=== PATIENT | female | born 1980 | race African-American/Black ===

== ENCOUNTER 2016-09-04 17:00 | Outpatient (CLI) | payer OTHER ==
[~2016-09-04] VITALS: Ht 160 cm; Wt 97.1 kg
[2016-09-04 17:15] VITALS: BP 141/68
[2016-09-04 17:16] VITALS: BP 141/68
[2016-09-04] MEDS ORDERED: LO-DOSE ASPIRIN81 M2 PO (17:22)
[2016-09-04] MEDS ORDERED: VITAFOL-OB+DHA1 EACH PO (17:23)
[2016-09-04 18:34] VITALS: BP 111/57
[2016-09-04] MEDS ORDERED: MAKENA250 MG/11 IM ×2 (18:57→19:00)
[2016-09-04 19:58] LABS: ADD MIUA? NO; BILIRUBIN NEGATIVE; BLOOD NEGATIVE; COLOR YELLOW ((YELLOW)); GLUCOSE (STRIP) NEGATIVE; KETONES NEGATIVE; LEUKOCYTES NEGATIVE; NITRITE NEGATIVE; PROTEIN (STRIP) NEGATIVE; SPECIFIC GRAVITY 1.014 (1.000-1.030); UCUL ADDED? NO; UROBILINOGEN 0.2 MG/DL (0.2-1.0)
[2016-09-04 20:25] LABS: AMPHETAMINES QUANT VALUE 0 NG/ML; BARBITUATES QUANT VALUE 0 NG/ML; BENZODIAZEPINES QUANT VALUE 0 NG/ML; BENZODIAZEPINES, URINE SCREEN Negative (200 ng/mL); MARIJUANA QUANT VALUE 0 NG/ML; OPIATES QUANTITATIVE VALUE 0 NG/ML; PHENCYCLIDINE QUANT VALUE 0 NG/ML
[2016-09-04 20:48] VITALS: BP 128/66
[2016-09-04 20:51] LABS: DRSB INTERNAL CONTROL PASS; PROBE CHECK PASS; SPECIMEN PROCESSING CONTROL PASS
[2016-09-04 22:51] LABS: CANDIDA DNA PROBE NEGATIVE; GARDNERELLA DNA PROBE NEGATIVE; INTERNAL CONTROL VALID? YES
[2016-09-05 12:16] LABS: CHLAMYDIA TRACHOMATIS NEGATIVE; NEISSERIA GONORRHOEAE NEGATIVE
== END 2016-09-04 21:50 | disposition home or self-care (01) ==
LOC: LDRP-OP 17:00 → 2WEST 17:01
PROVIDERS: Advanced Practice Midwife
DX: O26.893 Other specified pregnancy related conditions, third trimester (principal); Z3A.32 32 weeks gestation of pregnancy; R10.84 Generalized abdominal pain; O34.219 Maternal care for unspecified type scar from previous cesarean delivery
CPT/HCPCS: 59025; 80306 90; 81003; 82731; 87081; 87086; 87480; 87491; 87510; 87591; 87653; 87660; G0378

== ENCOUNTER 2016-10-17 20:44 | Inpatient (IN) | payer OTHER ==
[~2016-10-17] VITALS: Ht 160 cm; Wt 94.5 kg
[~2016-10-17 20:44] MED LIST: LO-DOSE ASPIRIN81 M2 PO; MAKENA250 MG/11 IM; VITAFOL-OB+DHA1 EACH PO
[2016-10-17 21:27] VITALS: BP 132/78
[2016-10-17 21:46] LABS: EOSINOPHIL (%) 1.5 % (0-5); EOSINOPHIL COUNT 0.1 K/uL (0-0.3); HEMATOCRIT 33.2 % (36.0-46.0); IMMATURE GRANULOCYTE (%) 0.9 % (0.0-0.7); IMMATURE GRANULOCYTE COUNT 0.1 K/uL; INSTRUMENT ABS NEUTROPHIL CT 4.1 K/uL; MCH 26.9 PG (29.0-34.0); MCHC 31.9 G/DL (30.0-36.0); MCV 84.3 FL (83-99); MONOCYTE COUNT 0.3 K/uL (0-0.8); NEUTROPHIL (%) 62.6 % (45-76); NEUTROPHIL COUNT 4.1 K/uL (1.8-6.4); RBC DIS.WIDTH-CV 15.4 % (11.8-14.6); RBC DIS.WIDTH-SD 47.1 % (39-53); RED BLOOD COUNT 3.94 M/uL (3.80-5.20); WHITE BLOOD COUNT 6.6 K/uL (4.1-10.2)
[2016-10-17 22:33] LABS: PLAT.SUFFICIENCY ADEQUATE; PLATELET CLUMPS PRESENT - PLATELET COUNT APPEARS ADQ.
[2016-10-17 22:34] LABS: PLATELET COUNT UNABLE TO REPORT K/uL (156-360)
[2016-10-18] VITALS (18 sets, daily range): BP systolic 99–125; BP diastolic 50–68
[2016-10-18 06:43] LABS: EOSINOPHIL (%) 0 % (0-5); HEMATOCRIT 27.8 % (36.0-46.0); IMMATURE GRANULOCYTE (%) 0.5 % (0.0-0.7); IMMATURE GRANULOCYTE COUNT 0.1 K/uL; INSTRUMENT ABS NEUTROPHIL CT 8.7 K/uL; LYMPHOCYTE COUNT 1.3 K/uL (1.0-2.8); MCH 27.5 PG (29.0-34.0); MCHC 32.4 G/DL (30.0-36.0); MEAN PLAT.VOLUME 11.5 uM^3 (9.5-12.4); MONOCYTE (%) 4.5 % (3-12); MONOCYTE COUNT 0.5 K/uL (0-0.8); NEUTROPHIL (%) 82.2 % (45-76); NEUTROPHIL COUNT 8.7 K/uL (1.8-6.4); RBC DIS.WIDTH-CV 15.5 % (11.8-14.6); RBC DIS.WIDTH-SD 47.6 % (39-53); RED BLOOD COUNT 3.27 M/uL (3.80-5.20)
[2016-10-18 06:46] LABS: PLATELET COUNT 196 K/uL (156-360); WHITE BLOOD COUNT 10.6 K/uL (4.1-10.2)
[2016-10-18 13:07] LABS: HEMATOCRIT 24.2 % (36.0-46.0); MCH 27.4 PG (29.0-34.0); MCHC 32.6 G/DL (30.0-36.0); MEAN PLAT.VOLUME 11.4 uM^3 (9.5-12.4); PLATELET COUNT 178 K/uL (156-360); RBC DIS.WIDTH-CV 15.3 % (11.8-14.6); RBC DIS.WIDTH-SD 46.7 % (39-53); RED BLOOD COUNT 2.88 M/uL (3.80-5.20); WHITE BLOOD COUNT 10.1 K/uL (4.1-10.2)
[2016-10-19 03:15] VITALS: BP 110/53
[2016-10-19 07:27] VITALS: BP 93/52
[2016-10-19 11:52] VITALS: BP 114/76
[2016-10-19 14:20] LABS: HEMATOCRIT 21.8 % (36.0-46.0); MCH 27.6 PG (29.0-34.0); MCHC 32.6 G/DL (30.0-36.0); MCV 84.8 FL (83-99); MEAN PLAT.VOLUME 11.3 uM^3 (9.5-12.4); PLATELET COUNT 164 K/uL (156-360); RBC DIS.WIDTH-CV 15.8 % (11.8-14.6); RED BLOOD COUNT 2.57 M/uL (3.80-5.20); WHITE BLOOD COUNT 8.6 K/uL (4.1-10.2)
[2016-10-19 15:26] VITALS: BP 99/57
[2016-10-19 19:39] VITALS: BP 117/62
[2016-10-19 23:38] VITALS: BP 119/63
[2016-10-20 02:55] VITALS: BP 116/59
[2016-10-20 05:45] VITALS: BP 104/51
[2016-10-20 07:24] VITALS: BP 97/48
[2016-10-20 07:52] LABS: EOSINOPHIL (%) 1.2 % (0-5); EOSINOPHIL COUNT 0.1 K/uL (0-0.3); HEMATOCRIT 22.5 % (36.0-46.0); IMMATURE GRANULOCYTE (%) 1.5 % (0.0-0.7); IMMATURE GRANULOCYTE COUNT 0.1 K/uL; LYMPHOCYTE COUNT 1.6 K/uL (1.0-2.8); MCH 27.7 PG (29.0-34.0); MCHC 32.4 G/DL (30.0-36.0); MCV 85.2 FL (83-99); MEAN PLAT.VOLUME 10.7 uM^3 (9.5-12.4); MONOCYTE (%) 3.2 % (3-12); MONOCYTE COUNT 0.3 K/uL (0-0.8); NEUTROPHIL (%) 74.4 % (45-76); PLATELET COUNT 168 K/uL (156-360); RBC DIS.WIDTH-CV 15.8 % (11.8-14.6); RBC DIS.WIDTH-SD 48.3 % (39-53); RED BLOOD COUNT 2.64 M/uL (3.80-5.20); WHITE BLOOD COUNT 8.1 K/uL (4.1-10.2)
[2016-10-20] MEDS ORDERED: IBUPROFEN800 MG PO (08:56)
[2016-10-20] MEDS ORDERED: FERROUS SULFAT325 MG PO (08:56)
[2016-10-20] MEDS ORDERED: ENDOCET 5-3251 EACH PO (08:56)
== END 2016-10-20 11:15 | disposition home or self-care (01) | DRG 765 ==
LOC: LDRP-OP 20:44 → 2WEST 20:45 → LDRP-OP 11-27 09:48
PROVIDERS: Advanced Practice Midwife; Obstetrics & Gynecology
PROC: 10D00Z1 Extraction of Products of Conception, Low, Open Approach (ICD-10-PCS; principal; 2016-10-17)
DX: O75.82 Onset (spontaneous) of labor after 37 completed weeks of gestation but before 39 completed weeks gestation, with delivery by (planned) cesarean section (principal); Z3A.38 38 weeks gestation of pregnancy; Z37.0 Single live birth; O10.92 Unspecified pre-existing hypertension complicating childbirth; O90.81 Anemia of the puerperium; D62 Acute posthemorrhagic anemia; O99.214 Obesity complicating childbirth; Z68.30 Body mass index [BMI] 30.0-30.9, adult; O34.211 Maternal care for low transverse scar from previous cesarean delivery
CPT/HCPCS: 85025; 85027; 86900; 86901; J0690; J2270; J2274; J2405; J2765; J7120

== ENCOUNTER 2016-10-22 09:47 | Inpatient (IN) | payer OTHER ==
[~2016-10-22] VITALS: Ht 160 cm; Wt 95.5 kg
[~2016-10-22 09:47] MED LIST changes: +ENDOCET 5-3251 EACH PO; +FERROUS SULFAT325 MG PO; +IBUPROFEN800 MG PO
[2016-10-22 10:23] LABS: EOSINOPHIL (%) 1.9 % (0-5); EOSINOPHIL COUNT 0.2 K/uL (0-0.3); HEMATOCRIT 23.1 % (36.0-46.0); IMMATURE GRANULOCYTE (%) 2.2 % (0.0-0.7); IMMATURE GRANULOCYTE COUNT 0.2 K/uL; INSTRUMENT ABS NEUTROPHIL CT 5.6 K/uL; LYMPHOCYTE COUNT 1.5 K/uL (1.0-2.8); MCH 27.2 PG (29.0-34.0); MCV 84.9 FL (83-99); MONOCYTE (%) 5.1 % (3-12); MONOCYTE COUNT 0.4 K/uL (0-0.8); NEUTROPHIL (%) 71.4 % (45-76); NEUTROPHIL COUNT 5.6 K/uL (1.8-6.4); NRBC (%) 0.5 /100 WBC (0-0); RBC DIS.WIDTH-CV 15.7 % (11.8-14.6); RED BLOOD COUNT 2.72 M/uL (3.80-5.20); WHITE BLOOD COUNT 7.9 K/uL (4.1-10.2)
[2016-10-22 10:24] LABS: PLATELET COUNT 250 K/uL (156-360)
[2016-10-22 10:33] LABS: D-DIMER ELISA > 4.00 mg/L FEU (< 0.57)
[2016-10-22 10:48] LABS: CHLORIDE 109 mEq/L (99-109); SODIUM 142 mEq/L (136-147)
[2016-10-22 10:50] LABS: GLUCOSE 89 mg/dL (70-99)
[2016-10-22 10:51] LABS: ANION GAP 14 MEQ/L (2-14)
[2016-10-22 10:54] LABS: GFR ESTIMATE (CALCULATED) > 59 mL/min/; UREA NITROGEN (BUN) 13 mg/dL (9-23)
[2016-10-22 16:30] VITALS: BP 136/67
[2016-10-22 19:31] VITALS: BP 115/56
[2016-10-22 21:58] LABS: INFLUENZA A VIRAL ANTIGEN NEGATIVE
[2016-10-22 21:59] LABS: INFLUENZA B VIRAL ANTIGEN NEGATIVE
[2016-10-22 23:26] VITALS: BP 144/78
[2016-10-23 04:07] VITALS: BP 131/71
[2016-10-23 06:53] LABS: EOSINOPHIL (%) 1.3 % (0-5); EOSINOPHIL COUNT 0.1 K/uL (0-0.3); HEMATOCRIT 23.3 % (36.0-46.0); IMMATURE GRANULOCYTE (%) 2.9 % (0.0-0.7); IMMATURE GRANULOCYTE COUNT 0.2 K/uL; INSTRUMENT ABS NEUTROPHIL CT 5.3 K/uL; LYMPHOCYTE COUNT 1.5 K/uL (1.0-2.8); MCH 27.3 PG (29.0-34.0); MCHC 31.3 G/DL (30.0-36.0); MCV 87.3 FL (83-99); MEAN PLAT.VOLUME 10.6 uM^3 (9.5-12.4); MONOCYTE (%) 3.9 % (3-12); MONOCYTE COUNT 0.3 K/uL (0-0.8); NEUTROPHIL COUNT 5.3 K/uL (1.8-6.4); NRBC (%) 0.9 /100 WBC (0-0); PLATELET COUNT 266 K/uL (156-360); RBC DIS.WIDTH-SD 50.4 % (39-53); RED BLOOD COUNT 2.67 M/uL (3.80-5.20); WHITE BLOOD COUNT 7.5 K/uL (4.1-10.2)
[2016-10-23 07:10] VITALS: BP 132/67
[2016-10-23 07:15] LABS: ANION GAP 10 MEQ/L (2-14); CHLORIDE 107 MEQ/L (99-109); GFR ESTIMATE (CALCULATED) > 59 mL/min/; GLUCOSE 96 mg/dL (70-99); IRON 33 MCG/DL (35-150); POTASSIUM 3.8 MEQ/L (3.7-5.4); SAMPLE HEMOLYSIS CHECK 0; SAMPLE ICTERIC CHECK 0; SAMPLE LIPEMIA CHECK 0; SODIUM 140 MEQ/L (136-147); UREA NITROGEN (BUN) 11 mg/dL (9-23)
[2016-10-23 08:30] LABS: FERRITIN 32 NG/ML (10-291)
[2016-10-23 08:51] LABS: INTERNAL CONTROL VALID? YES
[2016-10-23 11:25] VITALS: BP 155/89
[2016-10-23 13:55] VITALS: BP 147/80
[2016-10-23 14:57] LABS: BASE EXCESS -0.7 mEq/L (-3 to +3); BICARBONATE 22.9 mEq/L (22-26); CARBOXY HGB 1.7 % (0-5); METHEMOGLOBIN 1.7 % (0-1.5); PCO2 33 mm Hg (35-45); PO2 56 mm Hg (80-100); pH 7.45 (7.35-7.45)
[2016-10-23 14:58] LABS: SITE RR
[2016-10-23 14:59] LABS: COMMENTS - BLOOD GASES A+C+; DEVICE NCHH; FI02 100 %; O2 FLOW 50 L/MIN; TOTAL RESP RATE 24 resp/min
[2016-10-23 20:03] VITALS: BP 144/81
[2016-10-24] VITALS (7 sets, daily range): BP systolic 121–166; BP diastolic 67–84
[2016-10-24 05:14] LABS: EOSINOPHIL (%) 0 % (0-5); IMMATURE GRANULOCYTE (%) 3.2 % (0.0-0.7); IMMATURE GRANULOCYTE COUNT 0.3 K/uL; INSTRUMENT ABS NEUTROPHIL CT 8.3 K/uL; LYMPHOCYTE COUNT 0.9 K/uL (1.0-2.8); MCH 26.8 PG (29.0-34.0); MCHC 31.3 G/DL (30.0-36.0); MCV 85.7 FL (83-99); MEAN PLAT.VOLUME 10.3 uM^3 (9.5-12.4); MONOCYTE COUNT 0.1 K/uL (0-0.8); NEUTROPHIL (%) 86.3 % (45-76); NEUTROPHIL COUNT 8.3 K/uL (1.8-6.4); NRBC (%) 0.4 /100 WBC (0-0); PLATELET COUNT 290 K/uL (156-360); RBC DIS.WIDTH-CV 15.8 % (11.8-14.6); RBC DIS.WIDTH-SD 49.2 % (39-53); WHITE BLOOD COUNT 9.6 K/uL (4.1-10.2)
[2016-10-24 05:40] LABS: ANION GAP 12 MEQ/L (2-14); CHLORIDE 106 MEQ/L (99-109); GFR ESTIMATE (CALCULATED) > 59 mL/min/; POTASSIUM 3.9 MEQ/L (3.7-5.4); SAMPLE HEMOLYSIS CHECK 0; SAMPLE ICTERIC CHECK 0; SAMPLE LIPEMIA CHECK 0; SODIUM 140 MEQ/L (136-147); UREA NITROGEN (BUN) 11 mg/dL (9-23)
[2016-10-24 05:58] LABS: GLUCOSE 145 mg/dL (70-99)
[2016-10-25 03:34] VITALS: BP 132/82
[2016-10-25 06:44] LABS: EOSINOPHIL (%) 1.2 % (0-5); EOSINOPHIL COUNT 0.1 K/uL (0-0.3); HEMATOCRIT 23.2 % (36.0-46.0); IMMATURE GRANULOCYTE (%) 2.7 % (0.0-0.7); IMMATURE GRANULOCYTE COUNT 0.3 K/uL; INSTRUMENT ABS NEUTROPHIL CT 7.7 K/uL; LYMPHOCYTE COUNT 1.3 K/uL (1.0-2.8); MCH 26.9 PG (29.0-34.0); MCV 86.6 FL (83-99); MEAN PLAT.VOLUME 10.6 uM^3 (9.5-12.4); MONOCYTE (%) 5.9 % (3-12); MONOCYTE COUNT 0.6 K/uL (0-0.8); NEUTROPHIL (%) 76.9 % (45-76); NEUTROPHIL COUNT 7.7 K/uL (1.8-6.4); NRBC (%) 0.6 /100 WBC (0-0); PLATELET COUNT 291 K/uL (156-360); RED BLOOD COUNT 2.68 M/uL (3.80-5.20)
[2016-10-25 07:11] LABS: ANION GAP 10 MEQ/L (2-14); CHLORIDE 109 MEQ/L (99-109); GFR ESTIMATE (CALCULATED) > 59 mL/min/; POTASSIUM 3.6 MEQ/L (3.7-5.4); SAMPLE HEMOLYSIS CHECK 0; SAMPLE ICTERIC CHECK 0; SAMPLE LIPEMIA CHECK 0; SODIUM 143 MEQ/L (136-147); UREA NITROGEN (BUN) 17 mg/dL (9-23)
[2016-10-25 07:16] LABS: GLUCOSE 104 mg/dL (70-99)
[2016-10-25 09:00] VITALS: BP 125/78
[2016-10-25 12:02] VITALS: BP 133/86
[2016-10-25 15:57] VITALS: BP 155/78
[2016-10-25 19:06] LABS: C DIFF TOXIN NEGATIVE (NEGATIVE)
[2016-10-25 19:16] LABS: PROBE CHECK PASS; SPECIMEN PROCESSING CONTROL PASS
[2016-10-25 19:32] VITALS: BP 150/72
[2016-10-25 23:28] VITALS: BP 151/83
[2016-10-26 03:10] VITALS: BP 132/65
[2016-10-26 04:31] LABS: MCH 26.8 PG (29.0-34.0); MCHC 31.3 G/DL (30.0-36.0); MCV 85.7 FL (83-99); MEAN PLAT.VOLUME 10.1 uM^3 (9.5-12.4); NRBC (%) 0.8 /100 WBC (0-0); PLATELET COUNT 305 K/uL (156-360); RBC DIS.WIDTH-CV 15.8 % (11.8-14.6); RBC DIS.WIDTH-SD 49.2 % (39-53); WHITE BLOOD COUNT 10.4 K/uL (4.1-10.2)
[2016-10-26 04:47] LABS: CHLORIDE 111 mEq/L (99-109); POTASSIUM 3.9 mEq/L (3.7-5.4); SODIUM 144 mEq/L (136-147)
[2016-10-26 04:48] LABS: GLUCOSE 97 mg/dL (70-99)
[2016-10-26 04:50] LABS: ANION GAP 12 MEQ/L (2-14)
[2016-10-26 04:52] LABS: GFR ESTIMATE (CALCULATED) > 59 mL/min/
[2016-10-26 04:53] LABS: UREA NITROGEN (BUN) 16 mg/dL (9-23)
[2016-10-26 05:30] LABS: ABS NEUTROPHIL COUNT 8.8; ANISOCYTOSIS 1+; BAND NEUTROPHILS 0.9 % (0-8.0); EOSINOPHIL ABS CT 0; INSTRUMENT ABS NEUTROPHIL CT 7.4 K/uL; LYMPHOCYTES 10.5 % (15.0-45.0); MACROCYTES 1+; METAMYELOCYTES 2.6 %; MICROCYTOSIS 1+; MYELOCYTES 2.6 %; OVALOCYTES 1+; PLAT.SUFFICIENCY ADEQUATE; POIKILOCYTOSIS 1+; SEG.NEUTROPHILS 83.4 % (46.0-76.0)
[2016-10-26 06:49] LABS: VANCOMYCIN, TROUGH 22.8 MCG/ML (10-20)
[2016-10-26 07:29] VITALS: BP 144/65
[2016-10-26 12:29] VITALS: BP 130/65
[2016-10-26 15:34] VITALS: BP 132/73
[2016-10-26 19:40] VITALS: BP 145/82
[2016-10-26 23:35] VITALS: BP 140/76
[2016-10-27 03:37] VITALS: BP 137/72
[2016-10-27 06:54] LABS: BASOPHIL COUNT 0.1 K/uL (0-0.1); EOSINOPHIL (%) 1.7 % (0-5); EOSINOPHIL COUNT 0.2 K/uL (0-0.3); HEMATOCRIT 23.6 % (36.0-46.0); IMMATURE GRANULOCYTE COUNT 0.5 K/uL; INSTRUMENT ABS NEUTROPHIL CT 6.9 K/uL; LYMPHOCYTE COUNT 2.3 K/uL (1.0-2.8); MCH 26.7 PG (29.0-34.0); MCHC 31.4 G/DL (30.0-36.0); MCV 85.2 FL (83-99); MONOCYTE (%) 5.8 % (3-12); MONOCYTE COUNT 0.6 K/uL (0-0.8); NEUTROPHIL (%) 65.3 % (45-76); NEUTROPHIL COUNT 6.9 K/uL (1.8-6.4); PLATELET COUNT 314 K/uL (156-360); RBC DIS.WIDTH-CV 15.7 % (11.8-14.6); RBC DIS.WIDTH-SD 48.2 % (39-53); RED BLOOD COUNT 2.77 M/uL (3.80-5.20); WHITE BLOOD COUNT 10.5 K/uL (4.1-10.2)
[2016-10-27 07:05] VITALS: BP 150/72
[2016-10-27 07:15] LABS: ANION GAP 12 MEQ/L (2-14); CHLORIDE 108 MEQ/L (99-109); GFR ESTIMATE (CALCULATED) > 59 mL/min/; GLUCOSE 100 mg/dL (70-99); SAMPLE HEMOLYSIS CHECK 0; SAMPLE ICTERIC CHECK 0; SAMPLE LIPEMIA CHECK 0; SODIUM 142 MEQ/L (136-147); UREA NITROGEN (BUN) 17 mg/dL (9-23)
[2016-10-27] MEDS ORDERED: ENDOCET 5-3251 EACH PO ×2 (10:46→10:48)
[2016-10-27 12:10] VITALS: BP 134/66
[2016-10-27] MEDS ORDERED: CIPROFLOXACIN500 M1 PO (12:48)
[2016-10-27] MEDS ORDERED: DOXYCYCLINE HY100 M3 PO (12:48)
[2016-10-27] MEDS ORDERED: LISINOPRIL10 MG PO (12:48)
[2016-10-27] MEDS ORDERED: PREDNISONE20 MG PO (12:49)
[2016-10-27] MEDS ORDERED: VENTOLIN HFA18 GM IH (12:50)
== END 2016-10-27 14:15 | disposition home or self-care (01) | DRG 776 ==
LOC: EME 09:47 → EDOF 15:07 → 2EAST 15:07
PROVIDERS: Emergency Medicine; Internal Medicine
DX: O90.89 Other complications of the puerperium, not elsewhere classified (principal); J18.9 Pneumonia, unspecified organism; Y95 Nosocomial condition; O10.93 Unspecified pre-existing hypertension complicating the puerperium; J96.01 Acute respiratory failure with hypoxia
CPT/HCPCS: 36600; 71010; 71275; 80048; 80202; 82607; 82728; 82746; 82803; 83540; 84466; 85025; 85379; 86255 90; 87040; 87070; 87205; 87449; 87493; 87502; 93005; 93306; 93970; 94010; 94640 76; 94760; 94799; 99281; 99285; J0456; J1650; J1940; J2543; J2930; J3370; J7030; J7050; J7512